=== PATIENT | female | born 1995 | race Caucasian/White ===

== ENCOUNTER → 2016-11-22 16:35 | Outpatient (CLI) | payer BC | END | disposition home or self-care (01) | LOC: D.CT 16:35 | DX: R13.10 Dysphagia, unspecified (principal) ==

== ENCOUNTER → 2017-03-12 13:08 | Outpatient (CLI) | payer BC | END | disposition home or self-care (01) | LOC: D.US 13:08 | DX: R10.9 Unspecified abdominal pain (principal) ==